=== PATIENT | male | born 1950 | race Caucasian/White ===

== ENCOUNTER → 2025-06-19 | Outpatient (CLI) | payer MEDICARE, SELFPAY ==
--- NOTE | 2025-06-19 09:55 | RAD_ITS ---
PROCEDURE: CHEST PA AND LATERAL 06/19/2025 REASON FOR EXAM: LONG-TERM CURRENT DRUG THERAPY TECHNIQUE: Procedure Code: RADCXR Modality: DX Procedure: CHEST PA AND LATERAL FINDINGS: Cardiomediastinal silhouette pulmonary vasculature and bony thorax are within normal limits. No focal infiltrates or effusion. RAD/Chest PA and Lateral IMPRESSION: No radiographic evidence of acute cardiopulmonary disease. Reading Location: [place] [id number]
--- NOTE | 2025-06-19 09:56 | RAD_ITS ---
EXAM: XR Left Foot Complete, 3 or More Views CLINICAL INDICATION: CHARCOT JOINT OF FOOT, OSTEOPENIA TECHNIQUE: Frontal, lateral and oblique views of the left foot. COMPARISON: No relevant prior studies available. FINDINGS: BONES/JOINTS: Moderate to severe degenerative changes of the metatarsophalangeal joints, D IP joints. No acute fracture. No dislocation. SOFT TISSUES: Soft tissue swelling. OTHER FINDINGS: Hammertoes. RAD/Foot min 3 Views IMPRESSION: Degenerative changes as above. Reading Location: [id number]
--- NOTE | 2025-06-19 09:56 | RAD_ITS ---
PROCEDURE: FOOT MIN 3 VIEWS 06/19/2025 REASON FOR EXAM: CHARCOT JOINT OF FOOT, OSTEOPENIA TECHNIQUE: Procedure Code: RADFO Modality: DX Procedure: FOOT MIN 3 VIEWS Laterality: Right COMPARISON: Opposite foot. FINDINGS: Bones: Pencil and cup deformities of the distal 2nd through 5th metatarsals. Furthermore subluxation and angulation of the metatarsal phalangeal joints. Overall less severe than the left foot. Sclerotic appearance to the 2nd metatarsal. Distal tibia and fibula otherwise negative. Tarsals metatarsals and phalanges otherwise negative. Joints: Probable Charcot changes of the midfoot with sclerotic changes. Likely chronic. Soft tissues: . Negative for radiopaque foreign body. Negative for soft tissue swelling. Other: Adjacent soft tissues otherwise negative. Remainder of exam negative. RAD/Foot min 3 Views IMPRESSION: No definitive acute abnormality of the right foot. Changes of the metatarsophalangeal joints, favor sequela of rheumatoid arthriti s. 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 Reading Location: [id number]
[2025-06-19 12:50] LABS: Hematocrit 45.5 % (40-54); Hemoglobin 15.5 g/dL (13.0-16.5); Immature Granulocytes Count 0.050 X10^3/uL (0.0-0.0); Mean Corp Hgb Conc 34.1 g/dL (32-36); Mean Corpuscular Volume 91.2 fL (80-94); Mean Platelet Vol. 11.5 fl (6.2-12.0); NRBC Flagged by Analyzer 0 % (0-5); Platelet Count 203 K/mm3 (150-450); RBC Distribution Width CV 12.5 % (11.6-14.6); RBC Distribution Width SD 41.1 fl (35.1-43.9); Red Blood Count 4.99 M/mm3 (4.6-6.2); White Blood Count 8.6 K/mm3 (4.4-11.0)
[2025-06-19 13:26] LABS: AST(SGOT) 30 U/L (<=37); Alanine Aminotransfer ALT/SGPT 23 U/L (<=46); Albumin, Serum 4.3 g/dL (3.4-4.8); Alkaline Phosphatase 78 U/L (40-129); Anion Gap 14 (5-15); BUN 33 mg/dL (4-19); BUN/Creat Ratio 27.0 RATIO (10-20); Calcium,Total 9.6 mg/dL (7.6-11.0); Carbon Dioxide 21.6 mmol/L (21.0-32.0); Chloride 107 mmol/L (98-108); Globulin 3.0 g/dL (2.2-4.2); Glucose 101 mg/dL (70-99); Hepatitis B Surface Antigen Nonreactive (Nonreactive); Hepatitis C Antibody Nonreactive (Nonreactive); Potassium 4.0 mmol/L (3.3-5.1)
[2025-06-19 13:34] LABS: CRP < 3.00 mg/L (0.0-3.0)
[2025-06-20 15:08] LABS: ANTINUCLEAR ANTIBODIES DIRECT Positive (Negative)
[2025-06-22 05:07] LABS: QNTFERON TB Mitogen Value > 10.00 IU/mL (.); QNTFERON TB Nil Value 0.18 IU/mL (.); QNTFERON TB1+ Ag Value 0.22 IU/mL (.); QNTFERON TB2+ Ag Value 0.26 IU/mL (.); QNTIFERON TB Positive Criteria Negative (Negative)
== END | disposition home or self-care (01) ==
PROVIDERS: PCP Family Medicine; Referring Provider Internal Medicine Rheumatology; Visit Provider Internal Medicine Rheumatology
DX: M05.79 Rheumatoid arthritis with rheumatoid factor of multiple sites without organ or systems involvement (principal); Z79.899 Other long term (current) drug therapy; M14.679 Charcot's joint, unspecified ankle and foot; M85.89 Other specified disorders of bone density and structure, multiple sites; I10 Essential (primary) hypertension; E78.5 Hyperlipidemia, unspecified
CPT/HCPCS: 36415; 71046; 73630; 80053; 85025; 85652; 86038; 86140; 86200; 86431; 86480; 86706; 86803; 87340